=== PATIENT | male | born 2000 | race Caucasian/White ===

== ENCOUNTER 2023-06-11 14:27 | Emergency (ER) | payer OTHER ==
[2023-06-11 14:36] VITALS: BP 133/84; PULSE 105; RESP 20; TEMP 98.1; BMI 22.9
[2023-06-11] MEDS ORDERED: ACETAMINOPHEN 500 MG TABLET (FP) ONE ×2 (15:26)
[2023-06-11] MEDS ORDERED: IBUPROFEN 600 MG TABLET (FP) PO ONE (15:26)
[2023-06-11] MEDS: IBUPROFEN 600 MG TABLET (FP) PO ONE (15:28)
[2023-06-11] MEDS: ACETAMINOPHEN 500 MG TABLET (FP) PO ONE (15:28)
[2023-06-11 15:38] LABS: BASO % 0.5 % (0-2.0); HEMATOCRIT 46.2 % (35.4-49); HEMOGLOBIN 16.1 GM/dL (11.7-16.9); LYMPH % 25.8 % (8-40); MCH 30.1 pg (25.7-33.7); MCHC 34.8 g/dl (32.0-35.9); MEAN CELL VOLUME 86.5 fl (80-96); MEAN PLT VOLUME 7.5 fl (7.5-11.1); MONO % 8.4 % (3.8-10.2); NEUT % 64.3 % (42.8-82.8); PLATELET COUNT 267 10^3/uL (134-434); RBC 5.34 M/mm3 (4.00-5.60); RDW 13.4 % (11.9-15.9); WHITE BLOOD COUNT 6.3 K/mm3 (4.0-10.0)
[2023-06-11 15:43] LABS: INR 1.22 (0.83-1.09); PROTHROMBIN TIME (PATIENT) 14.1 SEC (9.7-13.0)
[2023-06-11 15:45] LABS: POTASSIUM 4.1 mmol/L (3.5-5.1)
[2023-06-11 15:47] LABS: ALBUMIN 4.5 g/dl (3.4-5.0); CALCIUM 9.8 mg/dL (8.5-10.1)
[2023-06-11 15:50] LABS: CREATININE 1.1 mg/dL (0.55-1.3)
[2023-06-11 15:52] LABS: BILIRUBIN,TOTAL 1.4 mg/dL (0.2-1)
[2023-06-11 15:56] LABS: BLOOD UREA NITROGEN 14.2 mg/dL (7-18)
[2023-06-11] MEDS ORDERED: FAMOTIDINE 10 MG TABLET PO ONE (18:19)
== END 2023-06-11 18:38 | disposition home or self-care (01) ==
LOC: JER 14:27
DX: R07.9 Chest pain, unspecified (principal); N26.1 Atrophy of kidney (terminal); R79.89 Other specified abnormal findings of blood chemistry; Z20.822 Contact with and (suspected) exposure to COVID-19
CPT/HCPCS: 0241U-QW; 36415; 71275-TC; 80053; 85025; 85379; 85610; 86850; 86900; 86901; 93005; 93010; 99285-25; Q9967

== ENCOUNTER 2023-06-15 18:42 | Emergency (ER) | payer OTHER ==
[2023-06-15 18:54] VITALS: BP 114/81; PULSE 106; RESP 18; TEMP 98.2; BMI 22.9
== END 2023-06-15 22:49 | disposition home or self-care (01) ==
LOC: JER 18:42
DX: M79.622 Pain in left upper arm (principal); R07.9 Chest pain, unspecified; I80.9 Phlebitis and thrombophlebitis of unspecified site
CPT/HCPCS: 93005; 93010; 93971; 99284-25